=== PATIENT | male | born 1970 ===

== ENCOUNTER 2025-10-10 10:26 | Day surgery (SDC) | payer OTHER ==
[2025-10-10] MEDS ORDERED: fentaNYL CITRATE 50 MCG/ML AMPUL IV PUSH ONE (15:00)
[2025-10-10] MEDS ORDERED: DIPHENHYDRAMINE HCL 50 MG/ML VIAL 1ML IV ONE (15:00)
[2025-10-10] MEDS ORDERED: MIDAZOLAM HCL 2 MG/2 ML VIAL IV ONE (15:00)
[2025-10-10] MEDS ORDERED: ONDANSETRON HCL 2 MG/ML VIAL IV ONE (15:00)
== END 2025-10-10 17:45 | disposition home or self-care (01) ==
LOC: AMB-ENDOS 10:26
PROVIDERS: ATTEND Colon & Rectal Surgery
DX: K63.5 Polyp of colon (principal); K57.30 Diverticulosis of large intestine without perforation or abscess without bleeding